=== PATIENT | male | born 1985 | race Two or more races ===

== ENCOUNTER 2018-06-02 12:58 | Emergency (ER) | payer MEDICAID ==
[~2018-06-02] VITALS: Ht 177.8 cm; Wt 100.0 kg
[~2018-06-02 12:58] MED LIST: ALBU18HF2 IH; IBUP-812 PO; MOT200T PO; POLY255P19 PO
[2018-06-02 13:08] VITALS: BP 144/89
[2018-06-02] MEDS ORDERED: LIDO20SO16 PO (14:21)
[2018-06-02] MEDS ORDERED: PENI500T2 PO (14:21)
== END 2018-06-02 14:31 | disposition home or self-care (01) ==
LOC: ER 12:58
DX: J02.0 Streptococcal pharyngitis (principal); Z79.899 Other long term (current) drug therapy
CPT/HCPCS: 99283

== ENCOUNTER 2019-02-21 22:16 | Emergency (ER) | payer MEDICAID ==
[~2019-02-21] VITALS: Ht 175.3 cm; Wt 83.7 kg
[~2019-02-21 22:16] MED LIST changes: +LIDO20SO16 PO
[2019-02-21 22:19] VITALS: BP 128/75
[2019-02-22] MEDS ORDERED: ROBCFL PO (00:09)
[2019-02-22] MEDS ORDERED: CLOT15CR5 TOP (00:09)
[2019-02-22] MEDS ORDERED: BENZ-16 PO (00:09)
[2019-02-22] MEDS ORDERED: ALBU18HF2 INH (00:09)
[2019-02-22] MEDS ORDERED: guaiFENesin/DM 10ml UD oral syrup PO ONE (00:10)
== END 2019-02-22 00:47 | disposition home or self-care (01) ==
LOC: ER 22:16
DX: J20.9 Acute bronchitis, unspecified (principal); R21 Rash and other nonspecific skin eruption; F17.200 Nicotine dependence, unspecified, uncomplicated; F10.99 Alcohol use, unspecified with unspecified alcohol-induced disorder; Z79.899 Other long term (current) drug therapy; Y90.9 Presence of alcohol in blood, level not specified
CPT/HCPCS: 71045; 99283

== ENCOUNTER 2019-03-05 22:57 | Emergency (ER) | payer MEDICAID ==
[~2019-03-05] VITALS: Ht 175.3 cm; Wt 100.0 kg
[~2019-03-05 22:57] MED LIST changes: +ALBU18HF2 INH; +CLOT15CR5 TOP
[2019-03-05 23:12] VITALS: BP 138/84
[2019-03-05] MEDS ORDERED: ketorolac trometh inj. 60 MG/2 ML VIAL IM ONE (23:15)
[2019-03-05] MEDS ORDERED: CYCL-1 PO (23:17)
[2019-03-05] MEDS ORDERED: NAPR-56 PO (23:17)
== END 2019-03-05 23:37 | disposition home or self-care (01) ==
LOC: ER 22:57
DX: M54.12 Radiculopathy, cervical region (principal); M62.838 Other muscle spasm; F10.99 Alcohol use, unspecified with unspecified alcohol-induced disorder; Z79.899 Other long term (current) drug therapy; Y90.9 Presence of alcohol in blood, level not specified
CPT/HCPCS: 96372; 99283; J1885

== ENCOUNTER 2019-05-28 16:44 | Emergency (ER) | payer MEDICAID ==
[~2019-05-28] VITALS: Ht 175.3 cm; Wt 101.4 kg
[~2019-05-28 16:44] MED LIST changes: +CYCL-1 PO
[2019-05-28 17:02] VITALS: BP 137/87
[2019-05-28] MEDS ORDERED: TAM75C PO (17:37)
[2019-05-28] MEDS ORDERED: BENZ-38 PO (17:37)
[2019-05-28] MEDS ORDERED: ALBU8.5H8 IH (17:37)
== END 2019-05-28 18:03 | disposition home or self-care (01) ==
LOC: ER 16:44
DX: R05 Cough (principal); J02.9 Acute pharyngitis, unspecified; R11.2 Nausea with vomiting, unspecified; R51 Headache; M79.10 Myalgia, unspecified site; Z79.899 Other long term (current) drug therapy
CPT/HCPCS: 99283

== ENCOUNTER 2019-08-02 16:09 | Emergency (ER) | payer MEDICAID ==
[~2019-08-02] VITALS: Ht 175.3 cm; Wt 99.0 kg
[~2019-08-02 16:09] MED LIST changes: +ALBU8.5H8 IH
[2019-08-02 16:11] VITALS: BP 118/100
[2019-08-02] MEDS ORDERED: IBUP-1984 PO (16:51)
[2019-08-02] MEDS ORDERED: PENI500T2 PO (16:51)
== END 2019-08-02 17:05 | disposition home or self-care (01) ==
LOC: ER 16:09
DX: K04.7 Periapical abscess without sinus (principal); Z79.899 Other long term (current) drug therapy
CPT/HCPCS: 99283

== ENCOUNTER 2019-12-02 01:37 | Emergency (ER) | payer MEDICAID ==
[~2019-12-02] VITALS: Ht 175.3 cm; Wt 109.1 kg
[~2019-12-02 01:37] MED LIST changes: +CLOT15CR35 TOP; -CLOT15CR5 TOP
[2019-12-02 01:57] VITALS: BP 127/79
[2019-12-02] MEDS ORDERED: AMOX500C2 PO (02:14)
[2019-12-02] MEDS ORDERED: dexamethasone sod phosphate 10mg/ml inj PO STA (02:14)
--- NOTE | 2019-12-02 02:27 | NUR ---
pt dc ready by MD prior to me assessing him. I gave him his dc meds and paperwork.
== END 2019-12-02 02:28 | disposition home or self-care (01) ==
LOC: ER 01:38
DX: J03.90 Acute tonsillitis, unspecified (principal); F17.200 Nicotine dependence, unspecified, uncomplicated; Z72.89 Other problems related to lifestyle; Z79.899 Other long term (current) drug therapy
CPT/HCPCS: 99283; J1100

== ENCOUNTER 2019-12-21 21:35 | Emergency (ER) | payer MEDICAID ==
[~2019-12-21] VITALS: Ht 175.3 cm; Wt 96.7 kg
[2019-12-21] MEDS ORDERED: ketorolac trometh inj. 60 MG/2 ML VIAL IM ONE (22:25)
[2019-12-21] MEDS ORDERED: acetaminophen 325mg tablet PO ONE (22:25)
[2019-12-21 22:50] VITALS: BP 132/80
== END 2019-12-21 22:51 | disposition home or self-care (01) ==
LOC: ER 21:36
DX: J02.9 Acute pharyngitis, unspecified (principal); Z72.89 Other problems related to lifestyle; Z79.899 Other long term (current) drug therapy
CPT/HCPCS: 96372; 99283; J1885

== ENCOUNTER 2020-01-21 07:59 | Emergency (ER) | payer MEDICAID ==
[~2020-01-21] VITALS: Ht 177.8 cm; Wt 102.9 kg
[2020-01-21 08:08] VITALS: BP 148/82
[2020-01-21] MEDS ORDERED: BUPIVAcaine/PF 7.5mg/ml (0.75%) 10ml vial IJ ONE (08:20)
== END 2020-01-21 09:10 | disposition home or self-care (01) ==
LOC: ER 08:00
DX: S02.5XXA Fracture of tooth (traumatic), initial encounter for closed fracture (principal); K02.9 Dental caries, unspecified; Z72.89 Other problems related to lifestyle; Z79.899 Other long term (current) drug therapy; X58.XXXA Exposure to other specified factors, initial encounter; Y93.89 Activity, other specified; Y92.89 Other specified places as the place of occurrence of the external cause; Y99.8 Other external cause status
CPT/HCPCS: 64400; 99284

== ENCOUNTER 2020-01-23 20:06 | Emergency (ER) | payer MEDICAID ==
[~2020-01-23] VITALS: Ht 175.3 cm; Wt 102.5 kg
[2020-01-23 20:10] VITALS: BP 149/105
[2020-01-23] MEDS ORDERED: ACET-2615 PO (21:53)
[2020-01-23] MEDS ORDERED: IBUP-1984 PO (21:53)
[2020-01-23] MEDS ORDERED: acetaminophen 325mg tablet PO ONE (21:55)
[2020-01-23] MEDS ORDERED: amoxicillin 250mg capsule PO ONE (21:55)
[2020-01-23] MEDS ORDERED: ibuprofen tablet 400 MG TABLET PO ONE (21:55)
[2020-01-23] MEDS ORDERED: ondansetron 4mg rapidly disintigrating tab PO ONE (21:55)
[2020-01-23] MEDS ORDERED: AMOX500C2 PO (21:58)
== END 2020-01-23 22:18 | disposition home or self-care (01) ==
LOC: ER 20:06
DX: K08.89 Other specified disorders of teeth and supporting structures (principal); Z72.89 Other problems related to lifestyle; Z79.2 Long term (current) use of antibiotics; Z79.899 Other long term (current) drug therapy
CPT/HCPCS: 99284

== ENCOUNTER 2020-06-06 17:54 | Emergency (ER) | payer MEDICAID ==
[~2020-06-06] VITALS: Ht 177.8 cm; Wt 100.0 kg
[2020-06-06] MEDS ORDERED: orphenadrine citrate 60mg/2ml inj. IM ONE (19:00)
[2020-06-06] MEDS ORDERED: ketorolac tromethamine 15mg/ml inj. IM ONE (19:00)
[2020-06-06] MEDS ORDERED: NAPR-56 PO (19:03)
[2020-06-06] MEDS ORDERED: METH-360 PO (19:03)
[2020-06-06 19:15] VITALS: BP 137/90
== END 2020-06-06 19:16 | disposition home or self-care (01) ==
LOC: ER 17:54
DX: M54.5 Low back pain (principal); Z72.89 Other problems related to lifestyle; Z79.899 Other long term (current) drug therapy
CPT/HCPCS: 96372; 99284; J1885; J2360

== ENCOUNTER 2020-07-29 04:38 | Emergency (ER) | payer MEDICAID ==
[~2020-07-29] VITALS: Ht 175.3 cm; Wt 100.0 kg
[~2020-07-29 04:38] MED LIST changes: +METH-360 PO
[2020-07-29 04:39] VITALS: BP 137/95
[2020-07-29] MEDS ORDERED: ibuprofen tablet 400 MG TABLET PO ONE (04:50)
[2020-07-29] MEDS ORDERED: acetaminophen 325mg tablet PO ONE (04:50)
[2020-07-29] MEDS ORDERED: AMOX500C2 PO (04:52)
[2020-07-29] MEDS ORDERED: ibuprofen 200mg tablet PO ONE (04:55)
== END 2020-07-29 05:09 | disposition home or self-care (01) ==
LOC: ER 04:38
DX: J02.9 Acute pharyngitis, unspecified (principal); Z20.822 Contact with and (suspected) exposure to COVID-19; R05 Cough; Z72.89 Other problems related to lifestyle; Z79.2 Long term (current) use of antibiotics; Z79.899 Other long term (current) drug therapy
CPT/HCPCS: 87081; 87635; 87880; 99283; C9803

== ENCOUNTER 2020-09-30 10:47 | Emergency (ER) | payer MEDICAID ==
[~2020-09-30] VITALS: Ht 175.3 cm; Wt 106.7 kg
[2020-09-30] MEDS ORDERED: ketorolac tromethamine 15mg/ml inj. IM ONE (11:30)
[2020-09-30] MEDS ORDERED: IBUP-1984 PO (11:52)
[2020-09-30 12:53] VITALS: BP 133/90
== END 2020-09-30 12:55 | disposition home or self-care (01) ==
LOC: ER 10:47
DX: S20.212A Contusion of left front wall of thorax, initial encounter (principal); R07.89 Other chest pain; Z72.89 Other problems related to lifestyle; Z79.2 Long term (current) use of antibiotics; Z79.899 Other long term (current) drug therapy; X58.XXXA Exposure to other specified factors, initial encounter; Y93.89 Activity, other specified; Y92.89 Other specified places as the place of occurrence of the external cause; Y99.8 Other external cause status
CPT/HCPCS: 71045; 96372; 99283; J1885

== ENCOUNTER 2020-10-03 16:15 | Emergency (ER) | payer MEDICAID ==
[~2020-10-03] VITALS: Ht 175.3 cm; Wt 109.1 kg
[~2020-10-03 16:15] MED LIST changes: +IBUP-1984 PO
[2020-10-03 16:22] VITALS: BP 144/84
[2020-10-03] MEDS ORDERED: PENI500T2 PO (16:38)
--- NOTE | 2020-10-03 16:49 | NUR ---
PATIENT WAS SEEN ON THE AMBULANCE BAY PER PROVIDER AND DISCHARGED WITH PRESCRIPTION. PATIENT VERBALIZED UNDERSTANDING OF DC INSTRUCTIONS AND DEPARTED IN GOOD CONDITION.
== END 2020-10-03 16:48 | disposition home or self-care (01) ==
LOC: ER 16:16
DX: J02.9 Acute pharyngitis, unspecified (principal); R05 Cough; Z72.89 Other problems related to lifestyle; Z79.2 Long term (current) use of antibiotics; Z79.899 Other long term (current) drug therapy
CPT/HCPCS: 99283

== ENCOUNTER → 2020-10-22 | Emergency (ER) | payer MEDICAID ==
[~2020-10-22] VITALS: Ht 175.3 cm; Wt 118.2 kg
[~2020-10-22] MED LIST changes: -IBUP-1984 PO; +PENI250T2 PO; +PRED20TA PO
[2020-10-22 10:05] VITALS: BP 120/84
== END | disposition home or self-care (01) ==
LOC: ER 09:39
DX: K08.89 Other specified disorders of teeth and supporting structures (principal); Z79.899 Other long term (current) drug therapy
CPT/HCPCS: 99283

== ENCOUNTER 2020-11-11 01:12 | Inpatient (IN) | payer MEDICAID ==
[2020-11-11] VITALS (21 sets, daily range): BP systolic 100–125; BP diastolic 65–101
[~2020-11-11] VITALS: Ht 175.3 cm; Wt 111.3 kg
[~2020-11-11 01:12] MED LIST changes: -PENI250T2 PO; -PRED20TA PO
[2020-11-11] MEDS ORDERED: ondansetron/PF 4mg/2ml inj IV ONE (02:05)
[2020-11-11] MEDS ORDERED: ketorolac tromethamine 15mg/ml inj. IV ONE (02:05)
[2020-11-11] MEDS ORDERED: normal saline 1000ML IV soln IVB ONE (02:05)
[2020-11-11 02:19] LABS: CLARITY,URINE CLEAR (Clear); COLOR,URINE YELLOW (Yellow); GLUCOSE, URINE NEGATIVE (Neg); KETONES,URINE NEGATIVE (Neg); LEUKOCYTE ESTERASE ,URINE NEGATIVE (Neg); NITRITES, URINE NEGATIVE (Neg); OCCULT BLOOD,URINE NEGATIVE (Neg); PH,URINE 5.5 (4.8-8.0); PROTEIN,URINE NEGATIVE (Neg); UROBILINOGEN,URINE 0.2 E.U/dL (0.2-1.0)
[2020-11-11 02:20] LABS: ALANINE AMINOTRANSFERASE 28 U/L (12-78); ALBUMIN/GLOBULIN RATIO 1.1 (1.1-1.5); ALKALINE PHOSPHATASE 95 IU/L (46-116); ANION GAP 12 (8-16); ASPARTATE AMINO TRANSFERASE 13 U/L (10-37); BILIRUBIN,TOTAL 0.4 MG/DL (0.1-1.0); BLOOD UREA NITROGEN 18 MG/DL (7-18); BUN/CREATININE RATIO 19.4 (5.4-32.0); CALCIUM 8.4 MG/DL (8.5-10.1); CHLORIDE 104 MMOL/L (99-107); CREATININE 0.93 MG/DL (0.60-1.10); GLUCOSE 111 MG/DL (70-104); LIPASE 78 U/L (73-393); POTASSIUM 3.8 MMOL/L (3.5-5.1); SODIUM 141 MMOL/L (135-145); TOTAL CARBON DIOXIDE 25.1 MMOL/L (24-32); TOTAL PROTEIN 7.5 G/DL (6.4-8.2); eGFR > 90 ML/MIN
[2020-11-11 02:20] LABS: UA COLLECTION TYPE CLN CATCH MIDSTREAM
[2020-11-11 02:26] LABS: BASOPHILS % (AUTO) 0.3 % (0-1); EOSINOPHILS # (AUTO) 0.1 X10'3 (0-0.9); EOSINOPHILS % (AUTO) 0.9 % (0-6); HEMATOCRIT 44.8 % (42.0-52.0); HEMOGLOBIN 14.8 g/dl (14.0-17.9); LYMPHOCYTES % (AUTO) 13.1 % (21-51); MEAN CORPUSCULAR HEMOGLOBIN 27.6 PG (27.0-31.0); MEAN CORPUSCULAR VOLUME 83.8 FL (78-98); MEAN PLATELET VOLUME 9.6 FL (7.4-10.4); MONOCYTES # (AUTO) 0.6 X10'3 (0-0.9); MONOCYTES % (AUTO) 3.7 % (2-12); NEUTROPHILS # (AUTO) 12.8 X10'3 (1.8-7.7); PLATELET COUNT 197 X10'3 (140-440); RED BLOOD COUNT 5.35 X10'6 (4.70-6.10); RED CELL DISTRIBUTION WIDTH 13.8 % (11.5-14.5); WHITE BLOOD COUNT 15.6 X10'3 (4.5-11.0)
[2020-11-11 02:30] LABS: URINE AMPHETAMINE SCREEN NEGATIVE (Neg); URINE BARBITUATE SCREEN NEGATIVE (Neg); URINE BENZODIAZEPINES SCREEN NEGATIVE (Neg); URINE CANNABINOID SCREEN NEGATIVE (Neg); URINE COCAINE SCREEN NEGATIVE (Neg); URINE METHADONE SCREEN NEGATIVE (Neg); URINE OPIATE SCREEN NEGATIVE (Neg); URINE PHENCYCLIDINE SCREEN NEGATIVE (Neg)
[2020-11-11] MEDS ORDERED: normal saline 1000ML IV soln IV ONE (03:50)
[2020-11-11] MEDS ORDERED: piperacillin/tazo 3.375gm/50ml 50 ML IV ONE (03:50)
[2020-11-11] MEDS ORDERED: metoclopramide 5 mg/ml inj IV ONE (04:05)
--- NOTE | 2020-11-11 04:41 | NUR ---
HOSPITALIST PAGED OUT WITH NO RESPONSE WITHIN 30 MIN NURSING SUP NOTIFIED.
[2020-11-11] MEDS ORDERED: HYDROcodone/acetaminophen 10/325mg tab PO PRN ×2 (04:50→14:50)
[2020-11-11] MEDS ORDERED: HYDROcodone/acetaminophen 5mg/325mg tablet PO PRN ×2 (04:50→14:50)
[2020-11-11] MEDS ORDERED: mag hydrox/Alum hydrox/simeth 30ml oral suspension PO PRN (04:50)
[2020-11-11] MEDS ORDERED: ondansetron/PF 4mg/2ml inj IV PRN ×2 (04:50→13:45)
[2020-11-11] MEDS ORDERED: morphine 2 MG/ML inj. syringe IV PRN ×3 (04:50→13:45)
[2020-11-11] MEDS ORDERED: acetaminophen 325mg tablet PO PRN ×2 (04:50)
[2020-11-11] MEDS ORDERED: magnesium hydroxide 30ml (MOM) UD suspension PO PRN (04:50)
[2020-11-11] MEDS: dextrose 5%-1/2 normal saline 1,000 ML IV SCH ×3 (05:20→22:19)
--- NOTE | 2020-11-11 05:22 | NUR ---
pt sleeping, wakes to verbal, denies pain.
[2020-11-11] MEDS ORDERED: magnesium Cl slow-release 64mg tablet PO PRN (08:15)
[2020-11-11] MEDS ORDERED: magnesium 4gm in 100ml NS 100 ML IV PRN (08:15)
[2020-11-11] MEDS ORDERED: potassium Cl 40MEQ/1/2NS 520ml 520 ML IV PRN (08:15)
[2020-11-11] MEDS ORDERED: potassium Cl 20 mEq SR tablet PO PRN ×2 (08:15)
[2020-11-11] MEDS ORDERED: NO HOME MEDS (11:53)
[2020-11-11] MEDS: piperacillin/tazo 4.5gm/100ml 100 ML IV SCH ×2 (12:07→17:27)
[2020-11-11] MEDS ORDERED: famotidine/PF 10 mg/ml inj IV ONE (12:15)
[2020-11-11] MEDS ORDERED: LIDOcaine 1% 30ml preserv. free vial ONE (13:36)
[2020-11-11] MEDS ORDERED: BUPIVAcaine 0.5% inj/PF 30 ML ONE (13:36)
[2020-11-11] MEDS ORDERED: rocuronium 10mg/ml inj IV ONE ×2 (13:44→13:45)
[2020-11-11] MEDS ORDERED: propofol inj 20 ML IV ONE (13:44)
[2020-11-11] MEDS ORDERED: morphine 4 MG/ML inj SYRINge IV PRN (13:45)
[2020-11-11] MEDS ORDERED: proCHLORperazine 10 MG/2 ml inj IV PRN (13:45)
[2020-11-11] MEDS ORDERED: fentaNYL/PF 50MCG/1 ML 2ML syringe ONE (13:45)
[2020-11-11] MEDS ORDERED: meperidine/PF 25mg/ml syringe IV PRN ×3 (13:45)
[2020-11-11] MEDS ORDERED: ringers solution, lacted 1,000 ML IV SCH (13:45)
[2020-11-11] MEDS ORDERED: midazolam 1 mg/ML 2ml injection ONE (13:46)
[2020-11-11] MEDS ORDERED: sevoflurane 250ml liquid IH ONE (13:46)
[2020-11-11] MEDS ORDERED: dexamethasone sod phosphate 4mg/ml inj. ONE (14:00)
[2020-11-11] MEDS ORDERED: ondansetron/PF 4mg/2ml inj ONE (14:32)
[2020-11-11] MEDS ORDERED: glycopyrrolate 0.2mg/ml inj ONE (14:34)
[2020-11-11] MEDS ORDERED: neostigmine methylsulfate 1 MG/ML 10ml vial ONE (14:35)
--- NOTE | 2020-11-11 15:01 | NUR ---
Received from OR via , accompanied by Anesthesiologist DR SCOTT and report given by Anesthesiolgist. PT PRESENTS WITH PIV 20G RIGHT AC, ABD DRESSING DRY AND INTACT. VSS. Addendum: 11/11/20 at 1519 by Selene Torres RN Amended: Links added.
--- NOTE | 2020-11-11 16:44 | NUR ---
Patient report received from BRITTANI Rebolledo. Awaiting patient arrival.
--- NOTE | 2020-11-11 17:00 | NUR ---
patient arrived to floor. he was able to ambulate from gurney to bed. No complaints of pain. VSS. SDCs on.
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
--- NOTE | 2020-11-11 18:44 | NUR ---
Patient in room [facility]. I have received report from LISHA PETER and had the opportunity to ask questions and assume patient care.
[2020-11-11] MEDS: K and/or MAG REPLACEMENT MC SCH (20:00)
[2020-11-11] MEDS: heparin, porcine 5000 units/ml vial SQ SCH (20:43)
[2020-11-12] VITALS: BP 109/67
[2020-11-12] MEDS: piperacillin/tazo 4.5gm/100ml 100 ML IV SCH ×3 (00:14→16:00)
[2020-11-12 04:00] VITALS: BP 101/55
--- NOTE | 2020-11-12 06:30 | NUR ---
Problems reprioritized. Patient report given, questions answered & plan of care reviewed with BRITNEY PETER.
--- NOTE | 2020-11-12 06:34 | NUR ---
Patient in room [facility]. I have received report from BRITTANI Park and had the opportunity to ask questions and assume patient care.
[2020-11-12 07:00] VITALS: BP 102/57
[2020-11-12] MEDS: heparin, porcine 5000 units/ml vial SQ SCH (07:20)
[2020-11-12 07:24] LABS: BASOPHILS % (AUTO) 0.1 % (0-1); EOSINOPHILS % (AUTO) 0 % (0-6); HEMATOCRIT 38.7 % (42.0-52.0); HEMOGLOBIN 12.8 g/dl (14.0-17.9); LYMPHOCYTES # (AUTO) 1.2 X10'3 (1.1-4.8); MEAN CORPUSCULAR HEMOGLOBIN 27.7 PG (27.0-31.0); MEAN PLATELET VOLUME 9.7 FL (7.4-10.4); MONOCYTES # (AUTO) 0.5 X10'3 (0-0.9); NEUTROPHILS # (AUTO) 11.6 X10'3 (1.8-7.7); NEUTROPHILS % (AUTO) 86.9 % (42-75); PLATELET COUNT 177 X10'3 (140-440); RED BLOOD COUNT 4.62 X10'6 (4.70-6.10); RED CELL DISTRIBUTION WIDTH 13.5 % (11.5-14.5); WHITE BLOOD COUNT 13.4 X10'3 (4.5-11.0)
[2020-11-12 07:37] LABS: ANION GAP 9 (8-16); BLOOD UREA NITROGEN 11 MG/DL (7-18); BUN/CREATININE RATIO 13.1 (5.4-32.0); CHLORIDE 105 MMOL/L (99-107); CREATININE 0.84 MG/DL (0.60-1.10); GLUCOSE 136 MG/DL (70-104); POTASSIUM 3.7 MMOL/L (3.5-5.1); SODIUM 138 MMOL/L (135-145); TOTAL CARBON DIOXIDE 24.3 MMOL/L (24-32); eGFR > 90 ML/MIN
[2020-11-12] MEDS: K and/or MAG REPLACEMENT MC SCH (08:00)
[2020-11-12 11:00] VITALS: BP 136/76
[2020-11-12] MEDS: dextrose 5%-1/2 normal saline 1,000 ML IV SCH (12:41)
--- NOTE | 2020-11-12 16:11 | NUR ---
Pt discharged to home with all belongings, in private vehicle. Discharge instructions and medications reviewed. No new prescriptions ordered. Pt instructed to follow up with Dr Butler in 1-2 weeks, office number provided. Education provided on signs/symptoms of infection, with instructions to notify Dr Butler's office with any concerns. Pt stated understanding and willingness to comply with all discharge instructions. IV DC'd, cannula intact. Pt escorted to front lobby by PCT.
[2020-11-12] MEDS ORDERED: lactobacillus rhamnosus 10,000 MMU CELLS/CAPSULE PO SCH (20:00)
== END 2020-11-12 16:22 | disposition home or self-care (01) | DRG 233 ==
LOC: ER 01:13 → ED HOLD 04:47 → SUR 3N 17:00
PROVIDERS: ADMIT Internal Medicine; ATTEND Family Medicine
PROC: 8E0W4CZ Robotic Assisted Procedure of Trunk Region, Percutaneous Endoscopic Approach (ICD-10-PCS; 2020-11-11)
PROC: 0DTJ4ZZ Resection of Appendix, Percutaneous Endoscopic Approach (ICD-10-PCS; principal; 2020-11-11 13:46)
DX: K35.31 Acute appendicitis with localized peritonitis and gangrene, without perforation (principal); F17.210 Nicotine dependence, cigarettes, uncomplicated; Z20.822 Contact with and (suspected) exposure to COVID-19
CPT/HCPCS: 36415; 74176; 80048; 80053; 80305; 81003; 83605; 83690; 84145; 85025; 87040; 87081; 87635; 96361; 96365; 96375; 99285; A4215; A4618; G0378; J1100; J1644; J1885; J2001; J2250; J2270; J2405; J2543; J2704; J2710; J2765; J3010; J3490; J7030

== ENCOUNTER 2020-11-27 17:37 | Emergency (ER) | payer MEDICAID ==
[~2020-11-27] VITALS: Ht 175.3 cm; Wt 111.4 kg
[2020-11-27 17:46] VITALS: BP 128/89
== END 2020-11-27 21:36 | disposition home or self-care (01) ==
LOC: ER 17:38
DX: K36 Other appendicitis (principal); Z48.00 Encounter for change or removal of nonsurgical wound dressing
CPT/HCPCS: 99281

== ENCOUNTER 2021-09-05 16:39 | Emergency (ER) | payer MEDICAID ==
[~2021-09-05] VITALS: Ht 175.3 cm; Wt 105.0 kg
[2021-09-05 16:42] VITALS: BP 136/95
== END 2021-09-05 19:45 | disposition home or self-care (01) ==
LOC: ER 16:40
DX: H11.33 Conjunctival hemorrhage, bilateral (principal); R05.9 Cough, unspecified; F17.200 Nicotine dependence, unspecified, uncomplicated; Z72.89 Other problems related to lifestyle
CPT/HCPCS: 99281

== ENCOUNTER 2022-08-11 08:25 | Emergency (ER) | payer MEDICAID ==
[~2022-08-11] VITALS: Ht 175.3 cm; Wt 109.0 kg
[2022-08-11 08:26] VITALS: BP 151/96
[2022-08-11] MEDS ORDERED: LOPE2CAP PO (08:55)
== END 2022-08-11 09:06 | disposition home or self-care (01) ==
LOC: ER 08:25
DX: R19.7 Diarrhea, unspecified (principal)
CPT/HCPCS: 99283

== ENCOUNTER 2022-08-25 12:20 | Emergency (ER) | payer MEDICAID ==
[~2022-08-25] VITALS: Ht 175.3 cm; Wt 114.6 kg
[~2022-08-25 12:20] MED LIST changes: -ALBU18HF2 IH; -ALBU18HF2 INH; -ALBU8.5H8 IH; -CLOT15CR35 TOP; -CYCL-1 PO; -IBUP-812 PO; -LIDO20SO16 PO; +LOPE2CAP PO; -METH-360 PO; -MOT200T PO; -POLY255P19 PO
[2022-08-25 12:22] VITALS: BP 137/90
== END 2022-08-25 14:25 ==
LOC: ER 12:21
DX: N50.811 Right testicular pain (principal); N50.812 Left testicular pain; R51.9 Headache, unspecified; F17.200 Nicotine dependence, unspecified, uncomplicated; Z72.89 Other problems related to lifestyle; Z79.899 Other long term (current) drug therapy
CPT/HCPCS: 99281

== ENCOUNTER 2022-10-21 14:04 | Emergency (ER) | payer MEDICAID ==
[~2022-10-21] VITALS: Ht 175.3 cm; Wt 100.4 kg
[2022-10-21 14:20] VITALS: BP 137/95
== END 2022-10-21 16:17 | disposition home or self-care (01) ==
LOC: ER 14:04
DX: B35.1 Tinea unguium (principal); Z72.89 Other problems related to lifestyle; Z79.899 Other long term (current) drug therapy
CPT/HCPCS: 99284

== ENCOUNTER 2022-10-24 09:15 | Emergency (ER) | payer MEDICAID ==
[~2022-10-24] VITALS: Ht 175.3 cm; Wt 109.4 kg
[2022-10-24 09:18] VITALS: BP 132/87
== END 2022-10-24 11:16 | disposition home or self-care (01) ==
LOC: ER 09:15
DX: S91.201A Unspecified open wound of right great toe with damage to nail, initial encounter (principal); X58.XXXA Exposure to other specified factors, initial encounter; Y93.89 Activity, other specified; Y92.89 Other specified places as the place of occurrence of the external cause; Y99.8 Other external cause status
CPT/HCPCS: 99281

== ENCOUNTER 2022-12-15 18:16 | Emergency (ER) | payer MEDICAID ==
[~2022-12-15] VITALS: Ht 175.3 cm; Wt 92.6 kg
[2022-12-15 18:48] VITALS: BP 141/96; PULSE 105; RESP 18; TEMP 98.7; O2SAT 96
== END 2022-12-15 19:40 | disposition home or self-care (01) ==
LOC: ER 18:17
DX: L02.818 Cutaneous abscess of other sites (principal); Z53.21 Procedure and treatment not carried out due to patient leaving prior to being seen by health care provider
CPT/HCPCS: 99281

== ENCOUNTER 2022-12-16 09:26 | Emergency (ER) | payer MEDICAID | END 2022-12-16 11:16 | disposition left against medical advice (07) | LOC: ER 09:27 | DX: M79.676 Pain in unspecified toe(s) (principal); Z53.21 Procedure and treatment not carried out due to patient leaving prior to being seen by health care provider ==

== ENCOUNTER 2024-02-07 15:24 | Emergency (ER) | payer MEDICAID ==
[~2024-02-07] VITALS: Ht 177.8 cm; Wt 100.0 kg
[2024-02-07 15:25] VITALS: BP 135/93; PULSE 98; TEMP 98.4; O2SAT 99
[2024-02-07 17:59] VITALS: RESP 16
== END 2024-02-07 18:03 | disposition home or self-care (01) ==
LOC: ER 15:24
DX: M25.531 Pain in right wrist (principal); M25.562 Pain in left knee; F17.210 Nicotine dependence, cigarettes, uncomplicated; Z79.899 Other long term (current) drug therapy; Z72.89 Other problems related to lifestyle
CPT/HCPCS: 29125; 73110; 73564; 99284; A6449

== ENCOUNTER 2024-03-31 15:06 | Emergency (ER) | payer MEDICAID ==
[~2024-03-31] VITALS: Ht 175.3 cm; Wt 96.4 kg
[2024-03-31 16:38] VITALS: BP 120/60; PULSE 80; RESP 16; TEMP 98.5; O2SAT 98
== END 2024-03-31 16:42 | disposition home or self-care (01) ==
LOC: ER 15:07
DX: S01.81XA Laceration without foreign body of other part of head, initial encounter (principal); F17.210 Nicotine dependence, cigarettes, uncomplicated; Z72.89 Other problems related to lifestyle; X58.XXXA Exposure to other specified factors, initial encounter; Y93.89 Activity, other specified; Y92.89 Other specified places as the place of occurrence of the external cause; Y99.8 Other external cause status
CPT/HCPCS: 12011; 99282

== ENCOUNTER 2024-11-09 17:04 | Emergency (ER) | payer MEDICAID ==
[~2024-11-09] VITALS: Ht 175.3 cm; Wt 96.0 kg
[2024-11-09 17:05] VITALS: BP 143/91; PULSE 83; RESP 16; TEMP 97.9; O2SAT 100
== END 2024-11-09 20:59 | disposition left against medical advice (07) ==
LOC: ER 17:04
DX: R51.9 Headache, unspecified (principal); Z53.21 Procedure and treatment not carried out due to patient leaving prior to being seen by health care provider

== ENCOUNTER 2025-02-02 08:37 | Emergency (ER) | payer MEDICAID ==
[~2025-02-02] VITALS: Ht 175.3 cm; Wt 94.5 kg
[2025-02-02 08:44] VITALS: BP 132/89; PULSE 83; RESP 18; TEMP 97.9; O2SAT 99
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
== END 2025-02-02 09:27 | disposition home or self-care (01) ==
LOC: ER 08:38
DX: S09.90XA Unspecified injury of head, initial encounter (principal); X58.XXXA Exposure to other specified factors, initial encounter; Y93.89 Activity, other specified; Y92.89 Other specified places as the place of occurrence of the external cause; Y99.8 Other external cause status
CPT/HCPCS: 99282

== ENCOUNTER 2025-03-31 11:00 | Outpatient (CLI) | payer MEDICAID ==
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
== END 2025-03-31 23:59 | disposition home or self-care (01) ==
LOC: MRI02 11:00
PROVIDERS: ATTEND Nurse Practitioner Family
DX: S09.90XD Unspecified injury of head, subsequent encounter (principal); J32.4 Chronic pansinusitis; G93.89 Other specified disorders of brain; X58.XXXD Exposure to other specified factors, subsequent encounter
CPT/HCPCS: 70551